=== PATIENT | female | born 1975 | race American Indian/Alaskan Native ===

== ENCOUNTER 2016-11-09 15:30 | Outpatient (CLI) | payer OTHER ==
[2016-11-09 16:00] LABS: Eosinophils % (Auto) 2.7 % (0.0-4.3); Hematocrit 39.2 % (30.3-42.9); Hemoglobin 13.3 gm/dl (10.1-14.3); Mean Corpuscular HGB Conc 34 % (30-34); Mean Corpuscular Hemoglobin 29 pg (28-32); Mean Corpuscular Volume 86 fl (79-97); Platelet Count 241 K/mm3 (140-440); Red Blood Count 4.58 M/mm3 (3.65-5.03); Red Cell Distribution Width 13.4 % (13.2-15.2); White Blood Count 6.1 K/mm3 (4.5-11.0)
[2016-11-09 16:17] LABS: Alanine Aminotransferase 10 units/L (7-56); Albumin/Globulin Ratio 1.5 %; Alkaline Phosphatase 45 units/L (35-129); Anion Gap 15 mmol/L; Blood Urea Nitrogen 12 mg/dL (7-17); Calcium 8.6 mg/dL (8.4-10.2); Carbon Dioxide 25 mmol/L (22-30); Chloride 101.3 mmol/L (98-107); Glucose 98 mg/dL (65-100); Sodium 137 mmol/L (137-145); Total Protein 6.7 g/dL (6.3-8.2)
--- NOTE | 2016-11-09 18:47 | Cat Scan Report ---
FINAL REPORT EXAM: CT ABDOMEN PELVIS W CON HISTORY: ABD PAIN TECHNIQUE: CT examination of the ABDOMEN after IV contrast CT examination of the PELVIS after IV contrast PRIORS: None. FINDINGS: Surgically absent gallbladder. Normal-appearing liver, adrenals, pancreas, and spleen. Intact normal caliber abdominal aorta and IVC. Normal-appearing kidneys and ureters. Very small fat containing umbilical hernia. Normal-appearing stomach and duodenum. No small bowel distention in the abdomen and pelvis. No pelvic free fluid. Normal-appearing urinary bladder and rectum. Uterus not visualized. Negative left adnexa. Nonspecific ring-enhancing lesion is noted in the right adnexal region. Maximum dimension is approximately 21 mm. This may reflect a hemorrhagic ovarian cyst. Normal-appearing sigmoid colon. No gross ascites, free air, or colonic distention. Normal-appearing cecum, terminal ileum, and appendix. IMPRESSION: Ring-enhancing lesion in the right adnexal region may be a 21 mm hemorrhagic ovarian cyst
== END 2016-11-09 15:31 | disposition home or self-care (01) ==
LOC: CT 15:30
PROVIDERS: ATTEND Internal Medicine
DX: K42.9 Umbilical hernia without obstruction or gangrene (principal); N83.8 Other noninflammatory disorders of ovary, fallopian tube and broad ligament; R30.0 Dysuria; Z90.49 Acquired absence of other specified parts of digestive tract
CPT/HCPCS: 36415; 74177; 80053; 85025; Q9967